=== PATIENT | female | born 1995 | race Caucasian/White ===

== ENCOUNTER 2018-05-26 19:05 | Day surgery (SDC) | payer OTHER ==
[2018-05-26 20:19] VITALS: TEMP 98.3; BMI 46.4
[2018-05-26] MEDS ORDERED: Lactated Ringer's 1,000 ML IV SCH (21:00)
[2018-05-26] MEDS ORDERED: diphenhydrAMINE 50 MG/ML VIAL IVP SCH (21:00)
--- NOTE | 2018-05-27 01:18 | PRG ---
OB ER ENCOUNTER DATE OF ENCOUNTER: 05/26/2018 PRIMARY LAST TRIMMER: Dr. Kain Jacobsen. CHIEF COMPLAINT: Severe allergic reaction to wasp sting. HISTORY OF PRESENT ILLNESS: The patient is a 22-year-old G1, P0 female with an intrauterine pregnanc y at 35 weeks and 4 days, who was recently seen in the [place] ER after being stung in the head by a wasp. The patient reports pain, swelling, welts and chest pain and nausea. The patient was giv en Solu-Medrol and Benadryl prior to transfer to [facility] in [place], [place]. Upon arrival, the p atedyta reports that she is feeling much better that she is not having any more symptoms at the time o f her presentation. The patient denies chest pain, shortness of breath, nausea, vomiting. Denies ut erine contractions, vaginal bleeding, or leakage of fluid. The patient reports she does have a sibli ng that has bad reaction to bees and another sibling who has the bad reaction to milk. She reports t hat she has been stung by bees and wasps in the past without reactions like this one. PAST MEDICAL HISTORY: Asthma. PAST SURGICAL HISTORY: Negative. SOCIAL HISTORY: Denies drug, alcohol or tobacco use. OB LABS: Unavailable at this time. REVIEW OF SYSTEMS: Per HPI. PHYSICAL EXAMINATION: VITAL SIGNS: Blood pressure 110/53, heart rate of 112, respiratory rate of 20. GENERAL: She appears to be in no acute distress. She is alert and oriented, cooperative and pleasan t to interact with. HEENT: Normocephalic, atraumatic. LUNGS: Clear to auscultation bilaterally. HEART: Regular rate and rhythm. ABDOMEN: Soft. SKIN: She does have redness on her skin, where she has had excoriations from scratching and develope d some redness on her forehead where she had some scratching. Otherwise, no other evidence of reacti on at this time. The patient received Benadryl at approximately 5:30 in the afternoon. heart tracing shows a fetus in the 150s with moderate long-term variability, positive 15 x 15 a ccelerations, no decelerations. The patient has some irritability in the monitor, not felt by her. ASSESSMENT AND PLAN: The patient has been monitored here for approximately a total of 5 hours from h er last dose of Benadryl. She continues to have a category 1 tracing and well-controlled reaction to this wasp sting. The patient will be discharged home with another dose of Benadryl. She has also b rudolph given a prescription for an EpiPen and will be staying the night with her mom here approximately 30 minutes from the hospital with instructions to take Benadryl about every 6 hours for the overnight . Her primary OB has also been notified of the patient's condition and has been asked that she follo w up with him tomorrow afternoon. The patient is being discharged to home in stable condition with a category 1 tracing and instructions to return should she have worsening symptoms.
== END 2018-05-26 22:43 | disposition home or self-care (01) ==
LOC: L&D/OP 19:05
PROVIDERS: ATTEND Obstetrics & Gynecology
DX: O9A.213 Injury, poisoning and certain other consequences of external causes complicating pregnancy, third trimester (principal); T63.461A Toxic effect of venom of wasps, accidental (unintentional), initial encounter; O99.513 Diseases of the respiratory system complicating pregnancy, third trimester; J45.909 Unspecified asthma, uncomplicated; Z3A.35 35 weeks gestation of pregnancy; Z79.899 Other long term (current) drug therapy
CPT/HCPCS: 59025; 96360; 96375; 99283; J1200

== ENCOUNTER 2018-06-20 21:16 | Inpatient (IN) | payer OTHER ==
[~2018-06-20 21:16] MED LIST: Bupivacaine/Epinephrine 0.25% 30 ML VIAL ONE
[2018-06-20 21:57] VITALS: BMI 49.4
[2018-06-20 22:59] LABS: Bilirubin Negative (Negative); Blood, Urine Negative (Negative); Clarity CLOUDY (Clear); Glucose, Urine (Dipstick) Negative (Negative); Leukocyte Negative (Negative); Nitrite Negative (Negative); Protein, Urine (Dipstick) Negative (Neg-Trace); Specific Gravity, Urine 1.012 (1.002-1.036); Urobilinogen 0.2 mg/dL (0.2-1.0); pH, Urine 5.5 (5.0-9.0)
[2018-06-20 23:01] LABS: Bacteria/HPF 1+ HPF (None Seen); Hyaline Casts/LPF 0-3 HYALINE CAST LPF (0-3 Hyaline); Pathc Cast-AUWi Flag 0.87 (0-2.49)
[2018-06-20] MEDS ORDERED: Ondansetron HCl/PF 4 MG/2 ML Vial IVP PRN (23:14)
[2018-06-20] MEDS ORDERED: Lidocaine 1% (PF) 30 ML VIAL SC PRN (23:14)
[2018-06-20] MEDS ORDERED: Labetalol HCl 100 MG/20 ML VIAL SLOW IVP PRN (23:39)
[2018-06-20] MEDS ORDERED: Calcium Gluc 4.6 MEQ/10 ML (100 MG/ML) SLOW IVP PRN (23:40)
[2018-06-20] MEDS ORDERED: Magnesium Sulfate 20 GM/WATER 500 ML BAG IVPB SCH (23:59)
[2018-06-21] MEDS: Lactated Ringer's 1,000 ML IV SCH ×5 (00:05→19:45)
[2018-06-21] MEDS ORDERED: Magnesium Sulfate 20 gm/500 ml 20 GM/500 ML BAG IVPB SCH (00:20)
[2018-06-21] MEDS: Misoprostol 100 MCG TAB VAG SCH ×2 (00:25→03:15)
[2018-06-21 00:39] LABS: Hemoglobin 10.1 g/dL (12.0-16.0); Mean Corpuscular HGB CONC 31.4 g/dL (32.0-36.0); Mean Corpuscular Hemoglobin 25.9 pg (27.0-31.0); Mean Corpuscular Volume 82.4 fL (78.0-98.0); Mean Platelet Volume 8.9 fL (7.4-10.4); Platelet Count 367 thou/uL (130-400); RBC Distribution Width 19.6 % (11.5-14.5); Red Blood Cell (RBC) Count 3.89 mill/uL (4.20-5.40); White Blood Cell (WBC) Count 18.1 thou/uL (4.8-10.8)
[2018-06-21 01:00] LABS: ALT (SGPT) 8 U/L (8-55); AST (SGOT) 20 U/L (5-34); Albumin 3.3 g/dL (3.5-5.0); Alkaline Phosphatase 146 U/L (40-150); Anion Gap 17 mmol/L (10-20); BUN (Urea Nitrogen) 8 mg/dL (7.0-18.7); Bilirubin, Total 0.2 mg/dL (0.2-1.2); Calc. Creatinine Clearance 267 mL/min (70-130); Calcium 9.8 mg/dL (7.8-10.44); Carbon Dioxide 15 mmol/L (22-29); Chloride 107 mmol/L (98-107); Estimated GFR-MDRD Greater than 90; Glucose 94 mg/dL (70-105); Potassium 4.4 mmol/L (3.5-5.1); Protein, Total 6.3 g/dL (6.0-8.3); Sodium 135 mmol/L (136-145); Uric Acid 5.5 mg/dL (2.6-6.0)
[2018-06-21 01:17] LABS: HBSAg Index 0.21 S/CO (0-0.99); Hep B Surf Ag Non-Reactive S/CO (NonReactive); Syphilis Antibody Nonreactive (Nonreactive); Syphilis Antibody Index 0.03 S/CO (<1.00 Non-Reactive)
[2018-06-21] MEDS ORDERED: Oxytocin 10 UNITS/ML VIAL ONE (07:36)
[2018-06-21] MEDS ORDERED: NS w/ Oxytocin 10 units 500 ML ONE ×3 (07:37→23:51)
[2018-06-21] MEDS: Butorphanol Tartrate 1 MG/ML VIAL SLOW IVP PRN ×2 (08:08→11:33)
[2018-06-21] MEDS ORDERED: Fentanyl 4 mcg/Bup 0.1% Cadd 100 ML ONE ×2 (13:33→21:53)
[2018-06-21] MEDS ORDERED: Bupivacaine 0.5% 10 ML VIAL ONE (13:41)
[2018-06-21] MEDS ORDERED: Fentanyl 100 MCG/2 ML VIAL ONE (13:41)
[2018-06-21] MEDS ORDERED: Acetaminophen 325 MG TAB PO PRN (14:15)
[2018-06-21] MEDS ORDERED: Naloxone HCl 0.4 mg/ml Vial IVP PRN ×2 (14:15)
[2018-06-21] MEDS ORDERED: Fentanyl 100 MCG/2 ML VIAL I-THECAL ONE (14:15)
[2018-06-21] MEDS ORDERED: Lactated Ringer's 500 ML IV PRN (14:15)
[2018-06-21] MEDS ORDERED: ePHEDrine/0.9% NaCl/PF SYRINGE 50 mg/10 ml SLOW IVP PRN (14:15)
[2018-06-21] MEDS ORDERED: Ondansetron HCl/PF 4 MG/2 ML Vial IVP PRN (14:15)
[2018-06-21] MEDS ORDERED: Fentanyl 4 mcg/Bupivacaine 0.1% Cassette 100 ML EPIDURAL SCH (14:15)
[2018-06-21] MEDS ORDERED: Communication Order-Pharmacy FS SCH (14:15)
[2018-06-21] MEDS ORDERED: Eucerin (Mineral Oil/Petrolatum,White) 30 gm Jar TOP PRN (14:15)
[2018-06-21] MEDS ORDERED: Promethazine HCl 25 MG/ML VIAL IM PRN (14:15)
[2018-06-21] MEDS ORDERED: Bupivacaine 0.25% 10 ML VIAL EPIDURAL ONE (14:15)
[2018-06-21] MEDS ORDERED: diphenhydrAMINE 50 MG/ML VIAL IVP PRN (14:15)
[2018-06-22] MEDS: Lactated Ringer's 1,000 ML IV SCH (02:15)
[2018-06-22] MEDS ORDERED: Fentanyl 4 mcg/Bup 0.1% Cadd 100 ML ONE (04:21)
[2018-06-22] MEDS ORDERED: CEFAZOLIN/Water 2 GM/20 ML SYRINGE ONE (06:12)
[2018-06-22] MEDS ORDERED: CEFAZOLIN/Water 2 GM/20 ML SYRINGE SLOW IVP SCH (06:15)
[2018-06-22] MEDS ORDERED: Bicitra 30 ML UDCUP ONE (06:17)
[2018-06-22] MEDS ORDERED: Methylergonovine 0.2 MG/ML VIAL ONE (07:14)
[2018-06-22] MEDS ORDERED: NS / Oxytocin 40 units/1000ml 1,000 ML ONE (07:14)
[2018-06-22] MEDS ORDERED: Carboprost 250 MCG/ML AMP ONE (07:14)
[2018-06-22] MEDS ORDERED: Misoprostol 200 MCG TAB ONE (07:14)
[2018-06-22] MEDS ORDERED: NS w/ Oxytocin 10 units 500 ML ONE (09:44)
[2018-06-22] MEDS: NS / Oxytocin 40 units/1000ml 1,000 ML IV PRN ×2 (10:50→11:49)
[2018-06-22 11:43] LABS: Analyzer IN Cardio OR
[2018-06-22 11:44] LABS: Actual Bicarbonate (HCO3v) 19 mEq/L (22-28); Base Excess -8.3 mEq/L (-2.0 to +3.0); pH (Cord, venous) 7.22 (7.32-7.43)
[2018-06-22] MEDS ORDERED: Acetaminophen/Codeine 30-300mg Tablet PO PRN (12:11)
[2018-06-22] MEDS ORDERED: Milk Of Magnesia 30 ML UDCUP PO PRN (12:11)
[2018-06-22] MEDS ORDERED: Lanolin Ointment 7 GM TUBE TOP PRN (12:11)
[2018-06-22] MEDS ORDERED: Bisacodyl 10 MG SUPP PR PRN (12:11)
[2018-06-22] MEDS ORDERED: Zolpidem Tartrate 5 MG TAB PO PRN (12:11)
[2018-06-22] MEDS ORDERED: diphenhydrAMINE 25 MG CAP PO PRN (12:11)
[2018-06-22] MEDS ORDERED: Misoprostol 200 MCG TAB VAG PRN (12:11)
[2018-06-22] MEDS ORDERED: Ondansetron HCl/PF 4 MG/2 ML Vial IVP PRN (12:11)
[2018-06-22] MEDS ORDERED: Preparation H Ointment 28 GM TUBE PR PRN (12:11)
[2018-06-22] MEDS ORDERED: Benzocaine/Menthol 20-0.5% 60 ML CAN TOP PRN (12:11)
[2018-06-22] MEDS ORDERED: NS / Oxytocin 40 units/1000ml 1,000 ML IV SCH (12:15)
[2018-06-22] MEDS: Misoprostol 100 MCG TAB VAG SCH ×2 (13:00→13:01)
[2018-06-22] MEDS: Ibuprofen 800 MG TAB PO SCH ×2 (13:18→21:48)
[2018-06-22] MEDS ORDERED: CEFAZOLIN 2 GM in Sodium Chloride 0.9% 100 ML IVPB SCH (14:00)
[2018-06-22] MEDS: CEFAZOLIN/Water 2 GM/20 ML SYRINGE SLOW IVP SCH ×2 (14:24→21:47)
[2018-06-22] MEDS: Ferrous Sulfate 325 MG TAB PO SCH (15:13)
[2018-06-22] MEDS: Docusate Calcium (SURFAK) 240 MG CAP PO SCH (21:02)
[2018-06-23] MEDS: Acetaminophen/Codeine 30-300mg Tablet PO PRN ×3 (03:45→22:26)
[2018-06-23 05:18] LABS: Hemoglobin 8.8 g/dL (12.0-16.0); Mean Corpuscular HGB CONC 31.1 g/dL (32.0-36.0); Mean Corpuscular Hemoglobin 26.2 pg (27.0-31.0); Mean Corpuscular Volume 84.4 fL (78.0-98.0); Platelet Count 322 thou/uL (130-400); Red Blood Cell (RBC) Count 3.37 mill/uL (4.20-5.40); White Blood Cell (WBC) Count 29.9 thou/uL (4.8-10.8)
[2018-06-23] MEDS: Ibuprofen 800 MG TAB PO SCH ×3 (06:02→21:32)
[2018-06-23] MEDS: CEFAZOLIN/Water 2 GM/20 ML SYRINGE SLOW IVP SCH (06:03)
[2018-06-23] MEDS: Ferrous Sulfate 325 MG TAB PO SCH ×2 (07:20→20:56)
[2018-06-23] MEDS: Docusate Calcium (SURFAK) 240 MG CAP PO SCH ×2 (09:40→20:56)
[2018-06-23] MEDS: Prenatal Vitamin 1 TAB PO SCH (09:40)
[2018-06-23 20:35] VITALS: BP 130/84; TEMP 98.3
[2018-06-24] MEDS: Ibuprofen 800 MG TAB PO SCH ×2 (06:43→14:31)
[2018-06-24] MEDS: Ferrous Sulfate 325 MG TAB PO SCH (09:44)
[2018-06-24] MEDS: Docusate Calcium (SURFAK) 240 MG CAP PO SCH (09:44)
[2018-06-24] MEDS: Prenatal Vitamin 1 TAB PO SCH (09:44)
== END 2018-06-24 14:40 | disposition home or self-care (01) | DRG 807 ==
LOC: L&D/OP 21:16 → L&D 23:30 → 3SW 06-22 12:27
PROVIDERS: ADMIT Obstetrics & Gynecology; ATTEND Obstetrics & Gynecology
PROC: 10D07Z6 Extraction of Products of Conception, Vacuum, Via Natural or Artificial Opening (ICD-10-PCS; principal; 2018-06-20)
PROC: 0W8NXZZ Division of Female Perineum, External Approach (ICD-10-PCS; 2018-06-20)
DX: O41.1230 Chorioamnionitis, third trimester, not applicable or unspecified (principal); Z37.0 Single live birth; Z3A.39 39 weeks gestation of pregnancy; O14.94 Unspecified pre-eclampsia, complicating childbirth; O76 Abnormality in fetal heart rate and rhythm complicating labor and delivery
CPT/HCPCS: 36415; 51702; 80053; 81001; 82805; 83615; 84550; 85027; 86780; 86850; 86900; 86901; 87340; 99285; J0595; J2001; J2210; J2405; J2590; J3010; J3490; S0020

== ENCOUNTER 2019-03-18 08:11 | Emergency (ER) | payer OTHER, SELFPAY ==
[2019-03-18] MEDS ORDERED: Ondansetron PF 4 MG/2 ML Vial ONE ×2 (10:09→13:54)
[2019-03-18] MEDS ORDERED: Morphine 4 MG/ML VIAL ONE (10:09)
--- NOTE | 2019-03-18 10:14 | ULT ---
RIGHT UPPER QUADRANT ABDOMINAL ULTRASOUND: Date: 03/18/19 COMPARISON: None. HISTORY: Right upper quadrant abdominal pain. TECHNIQUE: Multiplanar Crabtree scale and color Doppler images were obtained in a right upper quadrant abdominal ult rasound. FINDINGS: The liver is normal in echogenicity without focal lesions or intrahepatic ductal dilatation. There is a small echogenic structure along the nondependent gallbladder wall which may represent a small payal omatous or cholesterol polyp. There is no gallbladder wall thickening or pericholecystic fluid. The c ommon bile duct is normal measuring 4 mm. The visualized portions of the pancreas are unremarkable. The right kidney is normal in echogenicity without hydronephrosis or calculus and measures 10.8 cm in length. IMPRESSION: Possible small adenomatous versus cholesterol polyp in the gallbladder. POS: [facility]
[2019-03-18] MEDS ORDERED: Dexamethasone 20 MG/5 ML VIAL ONE (13:54)
[2019-03-18] MEDS ORDERED: Rocuronium Bromide 10 MG/ML (10ML VIAL) ONE (13:54)
[2019-03-18] MEDS ORDERED: PROPOFOL 200 MG/20 ML VIAL ONE (13:54)
[2019-03-18] MEDS ORDERED: Lidocaine 1% PF 5 ML VIAL ONE (13:54)
--- NOTE | 2019-03-18 14:56 | HP ---
CHIEF COMPLAINT: Abdominal pain. HISTORY OF PRESENT ILLNESS: Ms. Callaway is a 23-year-old woman with a several-day history of upper abdominal pain. She states that this is across both sides of her upper abdomen and radiates around the right side to her back. It is worse when she eats. She has had nausea and vomiting every time she has tried to eat for the past few days and is unable to keep anything down. She has been throwing up her food and clear liquid. Last night, she threw up 2 brownish-looking emeses and was worried that there might be blood, so she came into her local ER. Workup in the ER was significant for a right upper quadrant tenderness and a distended gallbladder on CT scan, so she was sent to [facility] for further evaluation. Her white count was elevated, but her LFTs were normal. Ultrasound showed a possible polyp in the gallbladder. She did not have any wall thickening or pericholecystic fluid, and her bile duct was normal caliber. The ER physician felt that she likely had cholecystitis based on her clinical symptoms and white count, so Surgery was consulted. Currently, she is fairly comfortable. She denies any history of melena or other changes in her bowel habits. No unusual ingestions or ill contacts recently. PAST MEDICAL HISTORY: Reactive airway disease, obesity, and depression. OUTPATIENT MEDICATIONS: Wellbutrin. She took Tylenol-based medication last night, but has not been taking NSAIDs or other medications on a regular basis. She uses an inhaler rarely when her reactive airway disease flares up. REVIEW OF SYSTEMS: 10 system review of systems is negative except per history of present illness. PAST SURGICAL HISTORY: None. She states that she had bad shivering when she had an epidural in the past. FAMILY HISTORY: There is a questionable family history of malignant hyperthermia. She was told that one of her great grandfathers on the table from anesthesia and she thinks that he had a high temperature when that happened. No one else in the family has had any problems that none of her direct relatives on that side of the family have had general anesthesia. Her father and her grandfather have had heart stents. SOCIAL HISTORY: She smokes a couple of cigarettes once a week. She drinks maybe twice a month. No drug use. ALLERGIES: NO KNOWN DRUG ALLERGIES. PHYSICAL EXAMINATION: VITAL SIGNS: The patient had a low-grade fever in [place] prior to her transfer. She is afebrile here. Other vitals are unremarkable. O2 sats are good. GENERAL: Reveals a pleasant, obese, young woman, in no acute distress. She is not jaundiced or icteric. She is not flushed or toxic in appearance. HEENT: Unremarkable. NECK: Supple without lymphadenopathy or thyroid nodules. HEART: Regular in its rate and rhythm without murmurs, rubs, or gallops. LUNGS: Clear to auscultation bilaterally. Breath sounds are distant due to body habitus. ABDOMEN: Soft and nondistended. She is completely nontender in the lower abdomen. She is tender to palpation in the epigastrium more than the right upper quadrant , but she does have a positive Reyes sign. She does not exhibit any rigidity, rebound, or guarding however. EXTREMITIES: Warm and well perfused without edema. NEURO: No focal deficits. PSYCHIATRIC: Alert, oriented, and appropriate. LABORATORY DATA: White count in [place] was elevated. Hematocrit is 37, which is not too far from what it has been in the past when not immediately . LFTs and electrolytes are unremarkable. DIAGNOSTIC STUDIES: CT and ultrasound images are reviewed, and I agree with the written report. ASSESSMENT AND PLAN: Likely cholecystitis based on symptoms; although her gallbladder does not look markedly abnormal on the ultrasound, she does have tenderness in this area and white count. In addition, she has a gallbladder polyp, which would be an indication for cholecystectomy in and of itself. She does have a family history of a great grandparent who during surgery, but the exact cause is not clear. Malignant hyperthermia is in the differential diagnosis, but she has never been tested for this. Unfortunately, there is not a good way to test for this outside of referring her to a tertiary care center for a muscle biopsy. We discussed the relative risks and benefits of proceeding with surgery and she has decided to proceed. Risks include, but are not limited to, bleeding, infection, risks of anesthesia including malignant hyperthermia, damage to nearby structures including bowel, liver, and bile duct, need for open surgery, need for other procedures. If her gallbladder looks entirely normal, then EGD would be recommended as well due to the possible history of hematemesis. However, I feel that this is most likely due to irritation of the GI tract by repeated vomiting as she only had 2 episodes and it was after multiple episodes of nonhematemesis like vomiting. The patient is in agreement with this plan. All of her questions were answered. Perioperative antibiotics were ordered. Job ID: [id number] MTDD
[2019-03-18] MEDS ORDERED: Famotidine/PF 20 mg/2ml Vial ONE ×2 (14:57→16:04)
[2019-03-18] MEDS ORDERED: Fentanyl 100 MCG/2 ML VIAL ONE ×2 (14:57→15:47)
[2019-03-18] MEDS ORDERED: Midazolam HCl 2 mg/2 ml Vial ONE ×2 (14:57→16:04)
[2019-03-18] MEDS ORDERED: Bupivacaine/Epinephrine 0.25% 30 ML VIAL ONE (14:58)
[2019-03-18] MEDS ORDERED: Iothalamate Meglumine 60% 50 ML VIAL FS ONE (14:58)
[2019-03-18] MEDS ORDERED: Propofol 500 MG/50 ML VIAL ONE (15:07)
[2019-03-18] MEDS ORDERED: PROPOFOL 40 ML ONE (15:07)
[2019-03-18] MEDS ORDERED: Propofol 1,000 MG/100 ML VIAL IV ONE (15:07)
[2019-03-18] MEDS ORDERED: SUGAMMADEX SODIUM 500 MG/5 ML VIAL ONE (15:09)
[2019-03-18] MEDS ORDERED: HYDROcodone/Acetaminophen 5/325 mg Tablet ONE (19:15)
--- NOTE | 2019-03-19 07:25 | PDOC.OP ---
Operative Note - Operative Note Operative Note: DATE OF PROCEDURE: 03/18/2019 PROCEDURES: Laparoscopic cholecystectomy, EGD with biopsy. SURGEON: Lady Stuart M.D. PREOPERATIVE DIAGNOSIS: Cholecystitis and gallbladder polyp, hematemesis POSTOPERATIVE DIAGNOSIS: Gallbladder polyp, gastritis FINDINGS: Distended thin walled gallbladder more consistent with biliary dyskinesia then acute cholecystitis. No pericholecystic edema or adhesions. Patchy gastritis most noticeable in the greater curvature near the antrum with stigmata of recent bleeding but no deep ulceration or visible vessel. HISTORY: Patient with symptoms of biliary colic. Laparoscopic cholecystectomy was recommended for symptomatic relief. Preoperative LFTs were normal and bile duct was normal caliber on preoperative imaging. PROCEDURE: After informed consent was obtained and appropriate preoperative antibiotics were administered, the patient was taken to the operating room and placed in the supine position and general endotracheal anesthesia was administered. The stomach was decompressed with an OG tube and the abdomen was prepped and draped in standard sterile fashion. Local anesthesia was infused to the skin and subcutaneous tissues at the umbilical level. A transverse skin incision was made. The fascia was elevated and a Veress needle was placed into the abdominal cavity without difficulty. Opening pressure was less than 5 and carbon dioxide gas easily insufflated to an intra-abdominal pressure of 15, which the patient tolerated well. The Veress needle was withdrawn and a Buckland port advanced under direct vision. The abdominal cavity was carefully examined. There was no evidence of Veress needle or of trocar injury. Local anesthesia was infused to the skin and subcutaneous tissues at the epigastric, right upper quadrant, and right lateral abdominal sites and trocars were placed under direct vision of the laparoscope. The fundus of the gallbladder was grasped and retracted superiorly. The infundibulum was grasped and retracted laterally. The serosa was stripped inferiorly at the level of the neck of the gallbladder exposing the cystic duct and artery which were traced clearly to their insertion in the gallbladder. Critical view of safety was obtained and the cystic duct and artery were clipped and divided between clips. The gallbladder was then dissected free of the gallbladder bed using hook electrocautery. Prior to complete removal of the gallbladder from the gallbladder bed, the area of the cystic duct and artery stumps was examined. The clips were in good position completely across these structures and there was no bleeding and no leakage of bile. The gallbladder was then placed into an EndoCatch bag and drawn out through the epigastric incision. The epigastric trocar was replaced and the operative site easily irrigated to clear. There was no significant bleeding or spillage of bile. The epigastric trocar was removed and the fascia closed under direct laparoscopic vision with a 0 Vicryl suture on a GraNee needle in a [id number] manner with excellent technical result. The right upper quadrant and right lateral abdominal trocars were removed and hemostasis verified. Carbon dioxide gas was allowed to desufflate through the umbilical trocar which was then removed. The skin incisions were closed with 4- 0 subcuticular Monocryl sutures and Dermabond dressings were placed. Attention was then turned to EGD. The EGD scope was advanced under direct vision into the esophagus and down into the stomach which distended normally. The patient was noted to have patchy gastritis most noticeable along the greater curvature near the antrum. One area in particular has stigmata of recent bleeding but there was no deep ulceration or visible vessel. No blood in the stomach. The pylorus was intubated and the duodenal bulb and proximal duodenum appeared normal without ulceration or duodenitis. An antral biopsy and biopsy of one of the areas of patchy gastritis were taken and sent to pathology. Hemostasis was verified. The scope was withdrawn with careful examination of the esophagus and no esophageal abnormalities seen. The patient was extubated and taken to the recovery room in good condition. There were no complications. ESTIMATED BLOOD LOSS: Minimal. SPECIMEN : Gallbladder and contents, biopsies of antrum and greater curvature.
== END 2019-03-18 13:01 | disposition home or self-care (01) ==
LOC: ERS 08:11
DX: A41.9 Sepsis, unspecified organism (principal); N39.0 Urinary tract infection, site not specified; K80.50 Calculus of bile duct without cholangitis or cholecystitis without obstruction; J45.909 Unspecified asthma, uncomplicated; F90.9 Attention-deficit hyperactivity disorder, unspecified type; F32.9 Major depressive disorder, single episode, unspecified; F17.210 Nicotine dependence, cigarettes, uncomplicated; Z79.899 Other long term (current) drug therapy
CPT/HCPCS: 76705; 96374; 96375; J0131; J0690; J1610; J2250; J2270; J2405; J2704; J3010; S0028